=== PATIENT | male | born 1985 | race Caucasian/White ===

== ENCOUNTER 2016-08-05 00:35 | Emergency (ER) | payer SELFPAY ==
[2016-08-05] MEDS ORDERED: IBUPROFEN 600 MG TABLET PO ONE (02:30)
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
[2016-08-05 03:02] VITALS: BP 131/74
== END 2016-08-05 03:04 | disposition home or self-care (01) ==
LOC: ER 00:35
PROC: 2W39X1Z Immobilization of Left Upper Extremity using Splint (ICD-10-PCS; principal; 2016-08-05)
DX: S52.125A Nondisplaced fracture of head of left radius, initial encounter for closed fracture (principal); V00.131A Fall from skateboard, initial encounter; F17.210 Nicotine dependence, cigarettes, uncomplicated
CPT/HCPCS: 99283